=== PATIENT | male | born 2000 | race Caucasian/White ===

== ENCOUNTER 2019-09-16 09:06 | Emergency (ER) | payer OTHER ==
--- NOTE | 2019-09-16 09:12 | ED ---
General Adult HPI - General Stated complaint: Dislocated shoulder Time Seen by Provider: 09/16/19 09:06 Source: RN notes reviewed, old records reviewed - History of Present Illness Initial comments: This is a 19-year-old male who presents emergency Department with right shoulder pain. Patient has a history of right shoulder dislocation. Patient was knee boarding today when he lost control and fell off the [place]. Patient states after he was having quite a bit of right shoulder pain and it was a defect such that it reminded him of the time he was in for a dislocation. Patient denies any other pain. Patient denies any headache patient has neck pain patient denies any chest pain or back pain. - Related Data Home Medications Medication Instructions Recorded Confirmed No Known Home Medications 09/16/19 09/16/19 Allergies Allergy/AdvReac Type Severity Reaction Status Date / Time No Known Allergies Allergy Verified 09/16/19 09:56 Review of Systems ROS Statement: Those systems with pertinent positive or pertinent negative responses have been documented in the HPI. ROS Other: All systems not noted in ROS Statement are negative. General Exam - General Exam Comments Initial Comments: GENERAL: Patient is well-developed and well-nourished. Patient is nontoxic and well- hydrated and is in moderate distress. ENT: Neck is soft and supple. No significant lymphadenopathy is noted. Oropharynx is clear. Moist mucous membranes. Neck has full range of motion without eliciting any pain. EYES: The sclera were anicteric and conjunctiva were pink and moist. Extraocular movements were intact and pupils were equal round and reactive to light. Eyelids were unremarkable. PULMONARY: Unlabored respirations. Good breath sounds bilaterally. No audible rales rhonchi or wheezing was noted. CARDIOVASCULAR: There is a regular rate and rhythm without any murmurs gallops or rubs. ABDOMEN: Soft and nontender with normal bowel sounds. SKIN: Skin is clear with no lesions or rashes and otherwise unremarkable. NEUROLOGIC: Patient is alert and oriented x3. Cranial nerves II through XII are grossly intact. Motor and sensory are also intact. Normal speech, volume and content. Symmetrical smile. MUSCULOSKELETAL: Patient has a deficit at the lateral aspect of the shoulder. Patient won't move the shoulder because of pain. LYMPHATICS: No significant lymphadenopathy is noted PSYCHIATRIC: Normal psychiatric evaluation. Course Vital Signs 09/16/19 09/16/19 09/16/19 09:08 09:45 10:06 Temperature 97.8 F Pulse Rate 57 L 68 68 Respiratory 18 18 18 Rate Blood Pressure 133/78 149/87 O2 Sat by Pulse 100 99 99 Oximetry Procedures - Orthopedic Joint Reduction Joint #1 Consent Obtained: verbal consent Side: right Joint Reduction Location: shoulder Analgesia: procedural sedation Shoulder Technique Used (if applicable): traction/counter-traction Post-Reduction Neuro Exam: intact Post-Reduction Vascular Exam: intact Post Reduction X-Ray Obtained: Yes Post Reduction X-Ray Results: reduced Patient Tolerated Procedure: well Medical Decision Making - Medical Decision Making X-ray shows a dislocated right shoulder. Postreduction x-ray shows normal anatomical placement Disposition Clinical Impression: Shoulder dislocation Disposition: HOME SELF-CARE Instructions (If sedation given, give patient instructions): Shoulder Dislocation (ED) Is patient prescribed a controlled substance at d/c from ED?: No Referrals: None,Stated [Primary Care Provider] - 1-2 days Time of Disposition: 10:21
[2019-09-16 09:15] VITALS: TEMP 97.8
--- NOTE | 2019-09-16 09:43 | XR ---
EXAMINATION TYPE: XR shoulder limited RT DATE OF EXAM: 09/16/2019 CLINICAL HISTORY: Right shoulder pain after injury. Dislocation. TECHNIQUE: AP and lateral transthoracic views of the right shoulder are obtained. COMPARISON: None. FINDINGS: There is anterior dislocation of the right shoulder. No evidence of fracture. The acromioc lavicular joint spaces within normal limits. The visualized ribs are intact and unremarkable. IMPRESSION: Anterior dislocation of the right shoulder.
[2019-09-16] MEDS ORDERED: ETOMIDATE 2 MG/ML 10 ML VIAL IVP STA (10:04)
--- NOTE | 2019-09-16 11:11 | XR ---
Right shoulder HISTORY: Post reduction Single frontal view of the right shoulder correlated to prior exam and same dated earlier time There is been interval reduction in this single view of patient's right shoulder dislocation. No evid ent fracture. IMPRESSION: Interval reduction
[2019-09-16 11:32] VITALS: BP 123/76; PULSE 70; RESP 16
== END 2019-09-16 11:41 | disposition home or self-care (01) ==
LOC: EC 09:06
DX: S43.014A Anterior dislocation of right humerus, initial encounter (principal); W19.XXXA Unspecified fall, initial encounter
CPT/HCPCS: 23650; 99284

== ENCOUNTER 2020-04-13 07:07 | Day surgery (SDC) | payer BC, OTHER ==
[2020-04-11 18:18] VITALS: BMI 22.1
[~2020-04-13 07:07] MED LIST: ACETAMINOPHEN TAB 500 MG TAB PO PRN; DEXAMETHASONE SOD PHOSPHATE 4 MG/ML 1 ML VIAL IV ONE; HEPARIN SODIUM,PORCINE 5,000 UNIT/ML 1 ML VIAL SQ PRN; HYDROmorphone 0.5 MG/0.5 ML SYRINGE IVP PRN; LACTATED RINGERS 1,000 ML IV SCH; LIDOCAINE 1% (10MG/ML) FOR IV START INTRADERMA PRN; MIDAZOLAM 2 MG/2 ML VIAL IV PRN
[2020-04-13] MEDS ORDERED: ONDANSETRON 4 MG/2 ML VIAL ONE (07:28)
[2020-04-13 07:53] LABS: HCT 49.8 % (39.0-53.0); MCH 31.6 pg (25.0-35.0); MCHC 34.2 g/dL (31.0-37.0); MCV 92.5 fL (80.0-100.0); Mean Platelet Volume 7.4; Platelet Count 221 k/uL (150-450); RBC 5.39 m/uL (4.30-5.90); WBC 7.1 k/uL (3.8-10.6)
[2020-04-13] MEDS ORDERED: MIDAZOLAM 2 MG/2 ML VIAL IV ONE (08:09)
[2020-04-13] MEDS ORDERED: fentaNYL (PF) 50 MCG/ML 2 ML AMP IV ONE (08:09)
--- NOTE | 2020-04-13 09:00 | P.GSHP ---
History of Present Illness H&P Date: 04/13/20 Chief Complaint: Left inguinal hernia This a 18-year-old male presents today for laparoscopic robotic-assisted repair of left inguinal hernia. Patient's complaints of a tender mass left groin. Past Medical History Past Medical History: No Reported History Additional Past Medical History / Comment(s): Dislocation Rt shoulder x2. Left inguinal hernia. History of Any Multi-Drug Resistant Organisms: None Reported Past Surgical History: No Surgical Hx Reported Additional Past Surgical History / Comment(s): wisdom teeth Past Anesthesia/Blood Transfusion Reactions: Motion Sickness Smoking Status: Never smoker - Past Family History Mother Family Medical History: No Reported History Medications and Allergies Home Medications Medication Instructions Recorded Confirmed Type No Known Home Medications 09/16/19 04/13/20 History Allergies Allergy/AdvReac Type Severity Reaction Status Date / Time No Known Allergies Allergy Verified 04/13/20 07:31 Surgical - Exam Vital Signs Temp Pulse Resp BP 98.1 F 76 18 156/82 04/13/20 07:30 04/13/20 07:30 04/13/20 07:30 04/13/20 07:30 - General well developed, well nourished, no distress - Eyes PERRL - ENT normal pinna - Neck no masses - Respiratory normal expansion - Cardiovascular Rhythm: regular - Abdomen Left inguinal hernia Abdomen: soft, non tender Results - Labs 04/13/20 07:45 Assessment and Plan Assessment: Left inguinal hernia. We'll perform laparoscopic robotic-assisted repair.
[2020-04-13] MEDS ORDERED: PROPOFOL 10 MG/ML 20 ML VIAL IV ONE (09:17)
[2020-04-13] MEDS ORDERED: NEOSTIGMINE 1 MG/ML 10 ML VIAL ONE (09:17)
[2020-04-13] MEDS ORDERED: SUCCINYLCHOLINE CHLORIDE 100 MG/5 ML SYR IV ONE (09:17)
[2020-04-13] MEDS ORDERED: ROCURONIUM 10 MG/ML (10 ML VIAL) IV ONE (09:17)
[2020-04-13] MEDS ORDERED: KETAMINE 10 MG/ML 20 ML VIAL ONE (09:17)
[2020-04-13] MEDS ORDERED: GLYCOPYRROLATE 0.2 MG/ML 2 ML VIAL ONE (09:17)
[2020-04-13] MEDS ORDERED: fentaNYL (PF) 50 MCG/ML 2 ML AMP ONE (09:17)
[2020-04-13] MEDS ORDERED: MIDAZOLAM 2 MG/2 ML VIAL ONE (09:17)
--- NOTE | 2020-04-13 09:39 | P.ANPRN ---
Procedure Note - Anesthesia - Nerve Block Performed Bilateral Transversus Abdominis Single Time Out Performed: Yes ([id number]) Date of Procedure: 04/13/20 Procedure Start Time: 08:09 Procedure Stop Time: 08:15 Location of Patient: PreOp Indication: Acute Post-Operative Pain, Requested by Surgeon Specifically requested for management of pain by DrAyde: Kamar Thompson Sedation Type: Sedate with meaningful contact maintained Preparation: Sterile Prep Position: Supine Catheter: None Needle Types: Pajunk Needle Gauge: 21 Ultrasound used to visualize needle placement: Yes Ultrasound used to observe medication spread: Yes Injectate: 0.5% Ropivacaine (see comment for volume) (15cc each side, 30cc total) Blood Aspirated: No Pain Paresthesia on Injection Noted: No Resistance on Injection: Normal Image Stored and Saved: Yes Events: Uneventful and Well Tolerated
[2020-04-13] MEDS ORDERED: BUPIVACAINE (PF) 0.25% 30 ML VIAL SQ ONE ×2 (09:52→10:06)
[2020-04-13] MEDS ORDERED: LACTATED RINGERS 1,000 ML IV ONE (10:02)
--- NOTE | 2020-04-13 10:20 | P.OP ---
Date of Procedure: 04/13/20 Preoperative Diagnosis: Left inguinal hernia Postoperative Diagnosis: Bilateral inguinal hernia Procedure(s) Performed: Laparoscopic robotic-assisted repair of bilateral inguinal hernia Anesthesia: FAITH Surgeon: Kamar Thompson Estimated Blood Loss (ml): 10 Pathology: none sent Condition: stable Disposition: PACU Description of Procedure: The patient's placed on the operating table in the supine position. The patient received general anesthesia. The patient's abdomen was prepped and draped in usual sterile fashion. The skin was anesthetized 1% local Xylocaine at the incision sites. Using an 11 blade a skin incision was made at the umbilicus. The fascia was grasped with a Cylinder and then the peritoneal cavity was entered with the Veress needle. Position of the Veress needle was confirmed with a positive drop test. After adequate insufflation a 5 mm trocar was placed into the peritoneal cavity. The Laparoscope was placed the peritoneal cavity. And a robotic 8 mm trocar was placed in the right lateral position and then another 8 mm robotic trochars placed in the left lateral position. The original 5 mm trocar was exchanged for a 12 mm trocar. The patient was placed in reverse Trendelenburg and then the patient was docked to the robot. Next the peritoneum over top of the right inguinal hernia was incised and then using blunt and sharp dissection and electrocautery the hernia sac was dissected free from the floor of the inguinal canal. The hernia sac was completely reduced into the peritoneal cavity. And then using the Pro director of financial aid mesh the hernia was repaired. The peritoneum was then sutured with 20V lock suture. Next the peritoneum over top of the left inguinal hernia was incised and then using blunt and sharp dissection and electrocautery the hernia sac was dissected free from the floor of the inguinal canal. The hernia sac was completely reduced into the peritoneal cavity. And then using the Pro director of financial aid mesh the hernia was repaired. The peritoneum was then sutured with 20V lock suture. The patient was then undocked the robot. The needle was withdrawn from the peritoneal cavity. The umbilical trocar site was closed with 0 Ethibond suture. The skin was closed interrupted 3-0 Monocryl suture. Dermabond dressing was applied. Patient was sent to recovery in stable condition.
[2020-04-13 10:36] VITALS: RESP 16; TEMP 97.8
[2020-04-13 13:51] VITALS: BP 126/71; PULSE 70
== END 2020-04-13 14:00 | disposition home or self-care (01) ==
LOC: OR 07:07
PROVIDERS: ATTEND Surgery
DX: K40.20 Bilateral inguinal hernia, without obstruction or gangrene, not specified as recurrent (principal)
CPT/HCPCS: 49650; S2900; 64488; 85027